=== PATIENT | male | born 1960 | race Caucasian/White ===

== ENCOUNTER → 2018-07-16 10:11 | Outpatient (CLI) | payer OTHER, SELFPAY ==
[2018-07-16 11:54] LABS: Add Manual Diff / Slide Review NO; Basophils Absolute Auto 0 /uL (0-100); Basophils Percent Auto 0.5 % (0-2); Eosinophils Absolute Auto 200 /uL (0-450); Eosinophils Percent Auto 2.3 % (2-4); Hematocrit 42.8 % (41-53); Hemoglobin 14.6 g/dL (13.5-17.5); Lymphocytes Absolute Auto 2500 /uL (1100-4500); Lymphocytes Percent Auto 29.6 % (25-40); Mean Corpuscular HGB Conc 34.1 % (30-36); Mean Corpuscular Hemoglobin 28.7 PG (26-34); Mean Corpuscular Volume 84.2 fL (80-100); Monocytes Absolute Auto 700 /uL (0-900); Monocytes Percent Auto 8.2 % (3-14); Neutrophils Absolute Auto 5100 /uL (1500-7000); Neutrophils Percent Auto 59.4 % (50-75); Platelet Count 258 X10^3/uL (150-400); Red Blood Cell Count 5.08 X10^6/uL (4.5-5.9); Red Cell Distribution Width 13.3 % (11.6-14.8); White Blood Cell Count 8.6 X10^3/uL (4.5-11.0)
[2018-07-16 12:13] LABS: Alanine Aminotransferase 30 IU/L (21-72); Albumin 4.3 g/dL (3.5-5.0); Albumin Globulin Ratio 1.4 (1.0-2.8); Alkaline Phosphatase 80 U/L (38-126); Aspartate Aminotransferase 23 IU/L (17-59); BUN Creatinine Ratio 16.9 (6-22); Bilirubin Total 0.9 mg/dL (0.2-1.3); Blood Urea Nitrogen 22 mg/dL (9-20); Calcium 9.6 mg/dL (8.4-10.2); Carbon Dioxide 26 mmol/L (22-32); Chloride 103 mmol/L (98-107); Cholesterol 183 mg/dL (140-199); Estimated Glomerular Filt Rate 56.9 mL/min (>60); Glucose 96 mg/dL (70-100); HDL Cholesterol 36 mg/dL (40-60); HEMOLYSIS < 15 (0-50); LDL Cholesterol Calculated 108 mg/dL (<100); Potassium 4.6 mmol/L (3.4-5.1); Sodium 140 mmol/L (137-145); Total Protein 7.3 g/dL (6.3-8.2); Triglycerides 195 mg/dL (35-150)
[2018-07-16 12:42] LABS: Thyroid Stimulating Hormone 1.01 uIU/mL (0.47-4.68)
== END ==
PROVIDERS: PCP Nurse Practitioner; Visit Provider Nurse Practitioner
DX: E03.9 Hypothyroidism, unspecified (principal); E66.9 Obesity, unspecified; E78.2 Mixed hyperlipidemia; N18.3 Chronic kidney disease, stage 3 (moderate); I12.9 Hypertensive chronic kidney disease with stage 1 through stage 4 chronic kidney disease, or unspecified chronic kidney disease; Z00.00 Encounter for general adult medical examination without abnormal findings; Z12.5 Encounter for screening for malignant neoplasm of prostate
CPT/HCPCS: 36415; 80053; 80061; 84443; 85025; G0103

== ENCOUNTER → 2019-07-14 12:58 | Outpatient (CLI) | payer OTHER, SELFPAY | PROVIDERS: PCP Nurse Practitioner; Visit Provider Physician Assistant | DX: J02.9 Acute pharyngitis, unspecified (principal) | CPT/HCPCS: 87070 ==

== ENCOUNTER → 2020-02-14 11:01 | Outpatient (CLI) | payer OTHER, SELFPAY ==
[2020-02-16 02:06] LABS: COVID19 Sendout Not Detected (Not Detect)
== END ==
PROVIDERS: PCP Nurse Practitioner; Visit Provider Student in an Organized Health Care Education/Training Program
DX: Z11.59 Encounter for screening for other viral diseases (principal)
CPT/HCPCS: 87635

== ENCOUNTER 2020-02-17 06:54 | Day surgery (SDC) | payer OTHER, SELFPAY ==
--- NOTE | 2020-02-17 | PATH_ITS ---
[facility] Accession Number: [id number] . 01 Material submitted: . PART A: cecum - CECUM POLYP PART B: body - POLYP AT 70CM PART C: body - POLYP AT 45CM . 02 Diagnosis: A. Cecum, Polyp, Biopsy: Tubular adenoma. . B. Colon, Polyp 70 cm, Biopsy: Tubular adenoma. . C. Colon, Polyp 45 cm, Biopsy: Tubular adenoma. MR 02/20/2020 1021 Local . 02 Electronically signed: . Cynthia Dodson MD, Pathologist NPI- [id number] . 01 Gross description: . A. Specimen A is received in formalin, labeled cecum polyp and consists of four arredondo-pink fragments of soft tissue, measuring 1.0 x 0.7 x 0.2 cm in aggregate. The specimen is entirely submitted in cassette A1. B. Specimen B is received in formalin, labeled polyp at 70 cm and consists of three arredondo-pink fragments of soft tissue, measuring 1.0 x 0.7 x 0.3 cm in aggregate. The specimen is entirely submitted in cassette B1. C. Specimen C is received in formalin, labeled polyp at 45 cm and consists of multiple arredondo-pink fragments of soft tissue, measuring 2.0 x 1.0 x 0.3 cm in aggregate. The specimen is entirely submitted in cassette C1. ([id number]) /[facility] 02/18/2020 1553 Local . 02 Pathologist provided ICD-10: D12.0, D12.6 . 02 CPT . 712197, 556303, 438179 Performed at: [address], [place], [place] [id number] MD Fercho Johnson MD Phone: [phone] Performed at: 02 [facility] [id number] [place] [id number] MD Cynthia Dodson MD Phone: [phone]
[2020-02-17 07:11] VITALS: BMI 35.2
[2020-02-17 07:21] VITALS: BP 130/81; PULSE 84; RESP 18; TEMP 36.4; O2SAT 99
[2020-02-17] MEDS: LACTATED RINGERS 1,000 ML 42 ML IV (07:30)
--- NOTE | 2020-02-17 07:45 | PM.HP.1 ---
History of Present Illness History of Present Illness Date Patient Seen: 02/17/20 Time Patient Seen: 07:45 Chief complaint: SD Narrative: Patient is gentleman here for screening colonoscopy. Last exam was 6 years ago. He had a polyp removed at that time. Patient History Medical History Pharyngitis (Acute) Surgical History (Updated 02/17/20 @ 07:46 by Guilherme Betancur MD) Status post thyroidectomy (Acute) Family & Social History Family History Brother Age: 66 Parkinson disease Sister Age: 63 Schizophrenia, unspecified type Social History: household members spouse Tobacco & Substance use: Tobacco type cigarettes Smoking Status Former smoker alcohol intake frequency holiday/special occasion Substance Use Type marijuana Meds Home Medications and Allergies Home Medications Medication Instructions Recorded Confirmed Type diltiazem HCl 180 mg 360 mg PO QDAY #180 cap 07/16/18 02/17/20 Rx capsule,extended release 24 hr levothyroxine 125 mcg tablet 125 mcg PO QDAY #90 tab 07/16/18 02/17/20 Rx lisinopril 20 1 tab PO QDAY #90 tab 07/16/18 02/17/20 Rx mg-hydrochlorothiazide 25 mg tablet Allergies Allergy/AdvReac Type Severity Reaction Status Date / Time lactose [LACTOSE] Allergy Unknown Verified 02/17/20 07:04 Review of Systems Review of Systems ROS: Yes All systems reviewed with the patient and are negative except as otherwise documented Exam Vital Signs (past 8 hours): - 02/17/20 07:21 Temperature 97.6 F Pulse Rate 84 Respiratory Rate 18 Blood Pressure 130/81 Pulse Oximetry 99 Oxygen Delivery Method Room Air Narrative Exam Narrative: Pleasant cooperative patient no apparent distress. Lungs are clear to auscultation. No rales or rhonchi. Heart regular rate and rhythm no murmur gallop. Abdomen is soft nontender without mass. No obvious hernias. Patient is alert and oriented x3. Assessment & Plan Assessment & Plan narrative: The patient for a screening colonoscopy. I have discussed the procedure with them. Risks of bleeding, perforation which would necessitate major operation, failure to find remove all lesions, the potential tattoo were all discussed. All questions were answered. They wished to proceed.
--- NOTE | 2020-02-17 07:47 | PM.PREOP ---
Pre-operative Note COVID-19 COVID-19 status: Negative Result date/Date tested (Pos, Neg/Pending): 02/14/20 Interval Note History & Physical reviewed/Exam performed by Physician: Yes Changes to H&P: No ASA Class (for procedural sedation): III
[2020-02-17] MEDS: MIDAZOLAM 5 MG/5 ML VIAL IV (08:00)
[2020-02-17] MEDS: fentaNYL 250 MCG/5 ML INJ IV (08:02)
--- NOTE | 2020-02-17 08:29 | PM.OP.ENDO ---
Operative Date/Time/Diagnoses Date of procedure: 02/17/20 Time of procedure: 08:29 Pre-op diagnosis: Screening. Last exam 6 years ago. History of polyps. Post-op diagnosis: same (Multiple small polyps) Procedure & Clinicians Study performed: Colonoscopy with cold biopsy and cold snare polypectomy Same procedure as scheduled: Yes Indications: Screening Surgeon: Guilherme Betancur Procedure Notes SCOAP/Timeout: Performed Procedure in detail: The patient was placed in the left lateral decubitus position and underwent IV sedation directed by the surgeon consisting of fentanyl and Versed. Digital exam was limited by his body habitus. Normal sphincter tone.. The scope was inserted and advanced through the rectum into the sigmoid, descending, transverse, and ascending colon.. The cecum was reached identified by the ileocecal valve and the appendiceal opening. Two small polyp like lesions were seen in the region which were biopsied and removed. The ileocecal valve was was successfully cannulated. The terminal ileum was normal in appearance. The scope was gradually brought out. Additional Polyps were found at 70 cm(two) and 2 at 45 cm. Both a cold biopsy and cold snare used to remove these.. The scope ultimately was retroflexed in the rectum. The appearance was normal. The scope was removed and the patient tolerated the procedure well. The prep was very good Scope withdrawal time: 8 minutes(17 total) Sedation minutes: 29 Findings: polyp Specimen(s): other (Polyps) Complications: none Post-procedure Recommendations: Colonscopy in 5 years Follow up: as needed Disposition: PACU
[2020-02-17 08:30] VITALS: BP 121/57; PULSE 70; RESP 12; TEMP 36.4; O2SAT 97
[2020-02-17 08:34] VITALS: BP 123/54; PULSE 66; RESP 21; O2SAT 96
[2020-02-17 08:38] VITALS: BP 114/60; PULSE 67; RESP 12; TEMP 36.3; O2SAT 95
[2020-02-17 08:49] VITALS: BP 113/79; PULSE 72; RESP 18; TEMP 36.8; O2SAT 98
--- NOTE | 2020-02-17 09:03 | SUR.PHASEII ---
pt given d/c instructions states he understands d/c instructions. No complaints at present time. Pt had 5 glasses of cranberry juice. Denies pain and nausea.
== END 2020-02-17 09:16 | disposition home or self-care (01) ==
PROVIDERS: PCP Family Medicine; Referring Provider Family Medicine; Visit Provider Specialist
PROC: 0DJD8ZZ Inspection of Lower Intestinal Tract, Via Natural or Artificial Opening Endoscopic (ICD-10-PCS; CPT 45378; principal; 2020-02-17 07:45)
DX: Z12.11 Encounter for screening for malignant neoplasm of colon (principal); Z86.010 Personal history of colon polyps; D12.0 Benign neoplasm of cecum; D12.6 Benign neoplasm of colon, unspecified
CPT/HCPCS: 45385; 45380; 99152; J2250; J3010

== ENCOUNTER → 2020-04-29 10:22 | Outpatient (CLI) | payer OTHER, SELFPAY ==
[2020-04-29 11:20] LABS: Add Manual Diff / Slide Review NO; Basophils Absolute Auto 100 /uL (0-100); Basophils Percent Auto 0.6 % (0-2); Eosinophils Absolute Auto 200 /uL (0-450); Eosinophils Percent Auto 2.3 % (2-4); Hematocrit 43.4 % (41-53); Hemoglobin 14.6 g/dL (13.5-17.5); Lymphocytes Absolute Auto 3400 /uL (1100-4500); Lymphocytes Percent Auto 33.5 % (25-40); Mean Corpuscular HGB Conc 33.6 % (30-36); Mean Corpuscular Hemoglobin 28.2 PG (26-34); Mean Corpuscular Volume 83.7 fL (80-100); Monocytes Absolute Auto 800 /uL (0-900); Neutrophils Absolute Auto 5700 /uL (1500-7000); Neutrophils Percent Auto 55.6 % (50-75); Platelet Count 240 X10^3/uL (150-400); Red Blood Cell Count 5.19 X10^6/uL (4.5-5.9); Red Cell Distribution Width 13.3 % (11.6-14.8); White Blood Cell Count 10.3 X10^3/uL (4.5-11.0)
[2020-04-29 12:39] LABS: Alanine Aminotransferase 28 IU/L (<50); Albumin 4.2 g/dL (3.5-5.0); Albumin Globulin Ratio 1.2 (1.0-2.8); Alkaline Phosphatase 86 U/L (38-126); Aspartate Aminotransferase 27 IU/L (17-59); Bilirubin Total 0.6 mg/dL (0.2-1.3); Blood Urea Nitrogen 30 mg/dL (9-20); Calcium 9.3 mg/dL (8.4-10.2); Carbon Dioxide 27 mmol/L (22-32); Chloride 104 mmol/L (98-107); Cholesterol 199 mg/dL (140-199); Estimated Glomerular Filt Rate 47.9 mL/min (>60); Globulin 3.6 g/dL (1.7-4.1); Glucose 106 mg/dL (70-100); HDL Cholesterol 36 mg/dL (40-60); HEMOLYSIS < 15 (0-50); LDL Cholesterol Calculated 120 mg/dL (<100); Sodium 137 mmol/L (137-145); Total Protein 7.8 g/dL (6.3-8.2); Triglycerides 217 mg/dL (35-150)
[2020-04-29 12:59] LABS: Free T4, Direct Thyroxine 1.44 ng/dL (0.78-2.19)
[2020-04-29 13:13] LABS: Thyroid Stimulating Hormone 1.32 uIU/mL (0.47-4.68)
== END ==
PROVIDERS: PCP Family Medicine; Referring Provider Family Medicine; Visit Provider Family Medicine
DX: E03.9 Hypothyroidism, unspecified (principal); I10 Essential (primary) hypertension; Z13.220 Encounter for screening for lipoid disorders
CPT/HCPCS: 36415; 80053; 80061; 84439; 84443; 85025

== ENCOUNTER → 2020-05-17 09:54 | Outpatient (CLI) | payer OTHER, SELFPAY ==
[2020-05-17 10:56] LABS: Add Manual Diff / Slide Review NO; Basophils Absolute Auto 0 /uL (0-100); Basophils Percent Auto 0.5 % (0-2); Eosinophils Absolute Auto 200 /uL (0-450); Eosinophils Percent Auto 2.6 % (2-4); Hematocrit 42.5 % (41-53); Lymphocytes Absolute Auto 3200 /uL (1100-4500); Lymphocytes Percent Auto 33.9 % (25-40); Mean Corpuscular HGB Conc 32.9 % (30-36); Mean Corpuscular Hemoglobin 27.8 PG (26-34); Mean Corpuscular Volume 84.4 fL (80-100); Monocytes Absolute Auto 800 /uL (0-900); Monocytes Percent Auto 8.8 % (3-14); Neutrophils Absolute Auto 5100 /uL (1500-7000); Neutrophils Percent Auto 54.2 % (50-75); Platelet Count 258 X10^3/uL (150-400); Red Blood Cell Count 5.03 X10^6/uL (4.5-5.9); Red Cell Distribution Width 13.3 % (11.6-14.8); White Blood Cell Count 9.5 X10^3/uL (4.5-11.0)
[2020-05-17 11:19] LABS: Alanine Aminotransferase 28 IU/L (<50); Albumin 4.3 g/dL (3.5-5.0); Albumin Globulin Ratio 1.2 (1.0-2.8); Alkaline Phosphatase 87 U/L (38-126); Aspartate Aminotransferase 28 IU/L (17-59); BUN Creatinine Ratio 20.5 (6-22); Bilirubin Total 0.7 mg/dL (0.2-1.3); Blood Urea Nitrogen 31 mg/dL (9-20); Calcium 9.4 mg/dL (8.4-10.2); Carbon Dioxide 27 mmol/L (22-32); Chloride 103 mmol/L (98-107); Cholesterol 196 mg/dL (140-199); Estimated Glomerular Filt Rate 47.5 mL/min (>60); Globulin 3.6 g/dL (1.7-4.1); Glucose 110 mg/dL (70-100); HDL Cholesterol 36 mg/dL (40-60); HEMOLYSIS < 15 (0-50); LDL Cholesterol Calculated 119 mg/dL (<100); Potassium 4.3 mmol/L (3.4-5.1); Sodium 139 mmol/L (137-145); Total Protein 7.9 g/dL (6.3-8.2); Triglycerides 204 mg/dL (35-150)
[2020-05-17 12:14] LABS: Thyroid Stimulating Hormone 1.29 uIU/mL (0.47-4.68)
== END ==
PROVIDERS: PCP Family Medicine; Referring Provider Family Medicine; Visit Provider Family Medicine
DX: E03.9 Hypothyroidism, unspecified (principal); Z13.220 Encounter for screening for lipoid disorders; I10 Essential (primary) hypertension
CPT/HCPCS: 36415; 80053; 80061; 84439; 84443; 85025

== ENCOUNTER 2020-09-14 15:51 | Emergency (ER) | payer OTHER, SELFPAY ==
[2020-09-14 15:54] VITALS: BP 114/66; PULSE 59; RESP 20; TEMP 36.6; O2SAT 99
--- NOTE | 2020-09-14 16:40 | ED.GENADULT ---
HPI - General Adult General Chief complaint: Eye Problems Stated complaint: states losing vision rt eye Time Seen by Provider: 09/14/20 16:36 Source: patient Mode of arrival: Ambulatory Limitations: no limitations History of Present Illness HPI narrative: Patient is a 60-year-old male. Has a history of hypothyroidism and also hypertension. He has had issues with his vision in the past and does wear corrective lenses. He states that approximately 1 month ago he was looking upwards in noticed some flashes in his right eye in his right visual field. Does seem to have improved but he does have some residual floaters. He states that he has been told that his ?jelly in my eye is coming apart ?I took this is meaning that he is having vitreous detachment. He states that earlier today he had an episode where he was again looking up and now has a black area in the lower portion of his right eye. It is not the entire lower portion of the right eye just a very small portion of this. It does seem to follow his vision as he looks around. He states that since that time he feels like he is looking through ?scotch tape ?he denies any headache. He denies any changes in his left eye. Related Data Previous Rx's Medication Instructions Recorded diltiazem HCl 180 mg 360 mg PO QDAY #180 cap 07/16/18 capsule,extended release 24 hr levothyroxine 125 mcg tablet 125 mcg PO QDAY #90 tab 07/16/18 lisinopril 20 1 tab PO QDAY #90 tab 07/16/18 mg-hydrochlorothiazide 25 mg tablet Allergies Allergy/AdvReac Type Severity Reaction Status Date / Time lactose [LACTOSE] Allergy Unknown Verified 02/17/20 07:04 Review of Systems Constitutional Constitutional: Denies headache(s) Eyes Eyes: Reports blind spots, Reports blurry vision, Reports change in vision, Denies eye discharge, Denies irritation, Denies itchy eyes, Denies loss of peripheral vision and Denies eye pain ENT Ears, Nose, Mouth, and Throat: Denies headache(s) and Denies sore throat Cardiovascular Cardiovascular: Reports system reviewed and no additional complaints, except as documented Respiratory Respiratory: Reports system reviewed and no additional complaints, except as documented Integumentary/Breasts Skin/Breast: Denies rash Neurologic Neurologic: Denies behavioral changes and Denies headache(s) Psychiatric Psychiatric: Denies behavioral changes Hematologic/Lymphatic On Anticoagulants: No Allergic/Immunologic Allergic/Immunologic: Reports system reviewed and no additional complaints, except as documented, Denies urticaria and Denies itchy eyes Patient History Medical History Pharyngitis Surgical History (Updated 02/17/20 @ 07:46 by Guilherme Betancur MD) Status post thyroidectomy Family History Brother Age: 67 Parkinson disease Sister Age: 64 Schizophrenia, unspecified type Social History household members: spouse Smoking Status: Former smoker Smoking Status: Former smoker alcohol intake frequency: holidays/special occasions only Substance Use Type: marijuana Exam Initial Vital Signs Initial Vital Signs: Vital Signs Temperature 97.9 F 09/14/20 15:54 Pulse Rate 59 L 09/14/20 15:54 Respiratory Rate 20 09/14/20 15:54 Blood Pressure 114/66 09/14/20 15:54 Pulse Oximetry 99 09/14/20 15:54 Const General: cooperative and comfortable Limitations: mental status not altered HENMT Head: normal to inspection and normocephalic Ears: hearing grossly normal bilaterally Nose: external nose normal Mouth: oral mucosae normal Eyes General: appearance normal, both eyes and all related structures Alignment and Position: alignment normal Periorbital: periorbital findings normal Eyelids: eyelids normal Conjunctivae: conjunctivae normal Pupils: PERRL EOM: EOM intact bilaterally Neck Lymphatic: No lymphadenopathy Resp Effort & Inspection: normal respiratory effort Auscultation: clear to auscultation bilaterally Cardio Rate: regular rate Skin Lesions: no lesions Rashes: no rashes Neuro General: patient alert, patient awake and patient oriented x3 Speech: speech normal Extrem General: normal to inspection and capillary refill normal Psych Appearance: grossly normal and well kempt Course Vital Signs Vital signs: Vital Signs - 8 hr 09/14/20 15:54 Temperature 97.9 F Pulse Rate 59 L Respiratory Rate 20 Blood Pressure 114/66 Pulse Oximetry 99 Medical Decision Making MDM Narrative Medical decision making narrative: Visual acuity was noted. He was 20/70 corrected in his right eye. Attempted to do direct visualization of the posterior portion of the eye with the panoptic scope however had very difficult time doing it seeing as how he was not dilated. I did discuss the case with Dr. Malone who was on-call for Ophthalmology and on-call for the patient's body mechanic apprentice. He stated that there was some concern that he had a small superior retinal detachment. He stated that the patient could be discharged home with instructions to follow up 1st thing in the morning with his body mechanic apprentice and also instructed that there is a good chance that he is going to be referred to a retina specialist depending on the exam. I did inform the patient of this. Patient was given strict return precautions. He expressed understanding and agreement. Discharge Plan Departure Patient Disposition: Home Clinical Impression: Alteration in vision Instructions: DI for Visual Field Disturbances Activity Restrictions/Additional Instructions: I recommend that tomorrow you follow-up with the [facility] physicians and surgeons. They open at 0800 hours in the morning. They are located here at the hospital. Their phone number is [phone]. Tell them that you were seen here in the emergency department and we talked with the on-call medical technologist who recommended that you show up in the morning to be seen. Also be prepared to be sent to a specialist after that visit like we discussed. Return to the emergency department for any new or worsening symptoms Prescriptions: No Action diltiazem HCl [Cartia XT] 180 mg capsule,extended release 24hr 360 mg PO QDAY Qty: 180 RF: 3 levothyroxine [Synthroid] 125 mcg tablet 125 mcg PO QDAY Qty: 90 RF: 3 lisinopril-hydrochlorothiazide [Zestoretic] 20-25 mg tablet 1 tab PO QDAY Qty: 90 RF: 3 Referrals: Corey Sam MD [Primary Care Provider] -
--- NOTE | 2020-09-14 16:45 | PC.NURSE ---
patient reports Im old and my eye is falling apart. states he has junk all in his eye. denies trauma or foreign body.
== END 2020-09-14 17:37 | disposition home or self-care (01) ==
PROVIDERS: Emergency Provider Emergency Medicine; PCP Family Medicine
DX: H54.7 Unspecified visual loss (principal)
CPT/HCPCS: 99281

== ENCOUNTER → 2021-03-28 10:07 | Outpatient (CLI) | payer OTHER, SELFPAY ==
[2021-03-28 11:23] LABS: COVID19 -Nasal RAPID Negative (Negative)
== END ==
PROVIDERS: PCP Family Medicine; Visit Provider Nurse Practitioner Family
DX: Z20.822 Contact with and (suspected) exposure to COVID-19 (principal)
CPT/HCPCS: 87635

== ENCOUNTER 2021-03-29 09:39 | Day surgery (SDC) | payer OTHER, SELFPAY ==
[2021-03-29 11:24] VITALS: BP 134/82; PULSE 61; RESP 14; TEMP 36.8; O2SAT 98; BMI 34.9
--- NOTE | 2021-03-29 12:05 | PM.PREOP ---
Pre-operative Note Interval Note History & Physical reviewed/Exam performed by Physician: Yes Changes to H&P: No
--- NOTE | 2021-03-29 12:05 | PM.OP.1 ---
Operative Date/Time/Diagnoses Pre-op diagnosis: Nuclear cataract right eye Procedure & Clinicians Procedure: Cataract Surgery Same procedure as scheduled: Yes Surgeon: Candelario Gutierrez Anesthesia Type: MAC +/- and Sedation Operative Notes Procedure in detail: Patient brought to the operating suite. Tetracaine drops placed in the right eye. Patient was prepped and draped in sterile manner. Wire lid speculum was placed in the eye. Betadine drops were placed on the eye. This was irrigated. Lidocaine jelly was placed on the eye. A paracentesis port was created with a side-port blade. 0.1 mL 1% preservative free lidocaine was injected into the anterior chamber. The anterior chamber was deepened with viscoelastic. 2.6 mm keratome was used to create a temporal clear corneal incision. Cystotome and Utrata forceps were used to create continuous tear capsulorrhexis. Balanced salt solution was used to hydro dissect the nucleus. The phacoemulsification handpiece was inserted and the nucleus was removed using the stop and chop technique. The irrigation aspiration handpiece was inserted and the remaining cortex was removed. Anterior chamber was deepened with viscoelastic. An Bourgeois DIB00 intraocular lens with a power of 16.0 was injected into the capsular bag. Irrigation aspiration handpiece was inserted and the remaining viscoelastic was removed. Incision was hydrated with balanced salt solution and found to be leak free with pressure with Weck-Edelmira sponges. 0.1 mL Vigamox injected anterior chamber. 0.3 mL Kenalog 10 mg was injected subconjunctivally. Lid speculum was removed. The patient left the operating room in excellent condition. Complications: none Post-operative Condition: stable Disposition: same day surgery
[2021-03-29] MEDS: HYALURONATE SODIUM 30 MG-10 MG/ML SYRINGES 1 BOX INTRAOCULA (12:28)
[2021-03-29] MEDS: PHENYLEPHRINE/LIDOCAINE VIAL (OR) 0.2 ML EYE-OP (12:29)
[2021-03-29] MEDS: MOXIFLOXACIN INJ 4 MG/0.8 ML VIAL 0.5 MG EYE-OP (12:29)
[2021-03-29] MEDS: LIDOCAINE 2% (GLYDO) 6 ML GEL TOP (12:30)
[2021-03-29] MEDS: TRIAMCINOLONE 50 MG/5 ML VIAL INJ (12:30)
[2021-03-29] MEDS: TETRACAINE 0.5% OPHTH DROPS 4 ML 2 DROPS EYE-OP (12:30)
[2021-03-29] MEDS: BALANCED SALT IRRIG SOLN NO.2 500 ML, EPINEPHrine 1 MG IRR (12:30)
[2021-03-29 12:53] VITALS: BP 121/72; PULSE 68; RESP 15; TEMP 36.2; O2SAT 96
[2021-03-29 13:15] VITALS: BP 126/70; PULSE 61; RESP 16; TEMP 36.1; O2SAT 100
== END 2021-03-29 13:21 | disposition home or self-care (01) ==
PROVIDERS: PCP Family Medicine; Referring Provider Ophthalmology; Visit Provider Ophthalmology
PROC: (CPT 66984; principal; 2021-03-29 12:15)
DX: H25.11 Age-related nuclear cataract, right eye (principal); I10 Essential (primary) hypertension
CPT/HCPCS: 66984; J0171; J2250; J3010; J3301

== ENCOUNTER → 2021-05-12 12:16 | Outpatient (CLI) | payer OTHER, SELFPAY ==
[2021-05-12 13:28] LABS: Add Manual Diff / Slide Review NO; Basophils Absolute Auto 0 /uL (0-100); Basophils Percent Auto 0.3 % (0-2); Eosinophils Absolute Auto 300 /uL (0-450); Eosinophils Percent Auto 2.6 % (2-4); Hematocrit 43.2 % (41-53); Hemoglobin 14.7 g/dL (13.5-17.5); Lymphocytes Absolute Auto 2900 /uL (1100-4500); Lymphocytes Percent Auto 29.5 % (25-40); Mean Corpuscular HGB Conc 34.1 % (30-36); Mean Corpuscular Hemoglobin 28.3 PG (26-34); Mean Corpuscular Volume 83.1 fL (80-100); Monocytes Absolute Auto 800 /uL (0-900); Monocytes Percent Auto 7.7 % (3-14); Neutrophils Absolute Auto 5900 /uL (1500-7000); Neutrophils Percent Auto 59.9 % (50-75); Platelet Count 269 X10^3/uL (150-400); Red Cell Distribution Width 13.4 % (11.6-14.8); White Blood Cell Count 9.9 X10^3/uL (4.5-11.0)
[2021-05-12 13:36] LABS: Alanine Aminotransferase 31 IU/L (<50); Albumin 4.4 g/dL (3.5-5.0); Albumin Globulin Ratio 1.3 (1.0-2.8); Alkaline Phosphatase 87 U/L (38-126); Aspartate Aminotransferase 29 IU/L (17-59); BUN Creatinine Ratio 20.7 (6-22); Bilirubin Total 0.7 mg/dL (0.2-1.3); Blood Urea Nitrogen 30 mg/dL (9-20); Calcium 9.6 mg/dL (8.4-10.2); Carbon Dioxide 25 mmol/L (22-32); Chloride 108 mmol/L (98-107); Cholesterol 203 mg/dL (140-199); Estimated Glomerular Filt Rate 49.6 mL/min (>60); Globulin 3.4 g/dL (1.7-4.1); Glucose 114 mg/dL (80-110); HDL Cholesterol 43 mg/dL (40-60); HEMOLYSIS < 15 (0-50); LDL Cholesterol Calculated 123 mg/dL (<100); Potassium 4.4 mmol/L (3.4-5.1); Sodium 140 mmol/L (137-145); Total Protein 7.8 g/dL (6.3-8.2); Triglycerides 187 mg/dL (35-150)
[2021-05-12 13:45] LABS: Free T4, Direct Thyroxine 1.56 ng/dL (0.78-2.19)
[2021-05-12 13:59] LABS: Thyroid Stimulating Hormone 1.15 uIU/mL (0.47-4.68)
== END ==
PROVIDERS: PCP Family Medicine; Referring Provider Family Medicine; Visit Provider Family Medicine
DX: I10 Essential (primary) hypertension (principal); E78.00 Pure hypercholesterolemia, unspecified; E03.9 Hypothyroidism, unspecified
CPT/HCPCS: 36415; 80053; 80061; 84439; 84443; 85025

== ENCOUNTER → 2023-01-18 17:32 | Outpatient (CLI) | payer OTHER, SELFPAY ==
--- NOTE | 2023-01-18 17:35 | DI.RAD.S_ITS ---
PROCEDURE: XR KNEE RT 3V INDICATIONS: Knee pain TECHNIQUE: 3 views of the knee were acquired. COMPARISON: None. FINDINGS: Bones: No fractures or dislocations. No suspicious bony lesions. Soft tissues: No joint effusion. No suspicious soft tissue calcifications. IMPRESSION: No acute radiographic abnormality. If pain persists with conservative management, consider cross sectional imaging such as CT or MRI for further assessment. Dictated by: Antony Carver Jose Interpreted: Rogers Cadet MD on 01/18/2023 at 19:27 Transcribed by: MICHAEL on 01/19/2023 at 8:09 Approved by: Rogers Cadet M.D. on 01/20/2023 at 8:20
--- NOTE | 2023-01-18 17:35 | DI.RAD.S_ITS ---
PROCEDURE: XR KNEE LT 3V INDICATIONS: Knee pain TECHNIQUE: 3 views of the knee were acquired. COMPARISON: None. FINDINGS: Bones: No fractures or dislocations. No suspicious bony lesions. Joints are relatively well maintained. Soft tissues: No joint effusion. No suspicious soft tissue calcifications. Possible prepatellar soft tissue swelling. IMPRESSION: No acute radiographic abnormality. If pain persists with conservative management, consider cross sectional imaging such as CT or MRI for further assessment. Dictated by: Antony Carver [facility] Interpreted: Rogers Cadet MD on 01/18/2023 at 19:26 Approved by: Rogers Cadet M.D. on 01/20/2023 at 8:20
== END ==
PROVIDERS: PCP Family Medicine; Referring Provider Nurse Practitioner Family; Visit Provider Nurse Practitioner Family
DX: M25.561 Pain in right knee (principal); M25.562 Pain in left knee
CPT/HCPCS: 73562